=== PATIENT | male | born 1960 | race Caucasian/White ===

== ENCOUNTER 2017-03-25 21:39 | Emergency (ER) | payer MEDICAID ==
[2017-03-25 21:49] VITALS: BP 120/83; BMI 20.9
--- NOTE | 2017-03-25 21:57 | DR.GENAD ---
HPI - PCP Primary Care Physician: tomeka - Complaint/Symptoms Chief Complaint Doctors Comments: Patient states that he did not take his morning insulin but took two doses this PM. He felt weak. He denies fever, vomiting or diarrhea. Patient with history of DM. Chief Complaint:: weak dizzy Self Treatment fo Chief Complaint: took lantus - Source History Provided: Patient - Mode of Arrival Mode of Arrival: Ambulatory - Timing Onset of Chief Complaint: 03/25/17 PMH - PMH Past Medical History: Yes Past Medical History: Angina, Arthritis, CHF, COPD, Coronary Artery Disease, Depression, Diabetes, Dyslipidemia, Headaches, Hypertension Past Surgical History: Yes Surgical History: Other - Family History History of Family Medical Conditions: Yes Family Medical History: Diabetes Mellitus, Coronary Artery Disease, Hypertension - Social History Does patient currently use any type of tobacco product: Yes Have you used tobacco products in the last 12 months: Yes Type of Tobacco Use: Cigarettes How many years tobacco product used: 42 Does any household member use tobacco: Yes Alcohol Use: None Do you use any recreational Drugs:: No Lives With: Alone Lives Where: Home - infectious screening In the last 2 months have you had wt loss of >10#?: NO Have you had fever, night sweats or hemotysis?: No Have you traveled outside the country in the last 6 months?: No Isolation: Standard ROS - Review of Systems Eyes: No Symptoms Reported ENTM: No Symptoms Reported Respiratoy: No Symptoms Reported Cardiovascular: No Symptoms Reported Gastrointestinal/Abdominal: No Symptoms Reported Genitourinary: No Symptoms Reported Neurological: No Symptoms Reported Musculoskeletal: No Symptoms Reported Integumentary: No Symptoms Reported Hematologic/Lymphatic: No Symptoms Reported Endocrine: No Symptoms Reported Psychiatric: No Symptoms Reported All Other Systems: Reviewed and Negative PE - Vital Signs Vitals: Temperature 98.7 F Pulse Rate 96 Respiratory Rate 16 Blood Pressure [Right Arm] 89/60 Blood Pressure 120/83 O2 Sat by Pulse Oximetry 100 - General Limitations: No Limitations General Appearance: Alert, In No Apparent Distress - Head Head Exam: Normal Inspection, Atraumatic - Eyes Eye exam: Normal Appearance, PERRL, EOMI - ENT ENT Exam: Normal Exam External Ear Exam: Normal External Inspection TM/Canal Exam: Bilateral Normal Nose Exam: Normal Nose Exam Mouth Exam: Normal Inspection Throat Exam: Normal Inspection - Neck Neck Exam: Normal Inspection, Full ROM - Chest Chest Inspection: Normal Inspection - Respiratory Respiratory Exam: Normal Lung Sounds Bilat Respiratory Exam: Bilateral Clear to Auscultation - Cardiovascular Cardiovascular Exam: Regular Rate, Normal Rhythm - Abdominal Exam Abdominal Exam: Normal Inspection Abdominal Tenderness: negative: RUQ, RLQ, LUQ, LLQ, Epigastrium, Suprapubic, Diffuse, Mild, Moderate, Severe, Other - Extremities Extremities Exam: Normal Inspection, Full ROM - Back Back Exam: Normal Inspection, Full ROM - Neurologic Neurological Exam: Alert, Oriented X3, CN II-XII Intact - Psychiatric Psychiatric Exam: Normal Affect, Normal Mood - Skin Skin Exam: Warm, Dry, Intact Course - Treatment Treatment: NS Bolus; serum glucose 281mg/dl ROR - Labs Reviewed Result Diagrams: 03/25/17 22:05 03/25/17 22:05 Laboratory: WBC 9.4 X10^3/uL (3.6-10.0) 03/25/17 22:05 RBC 4.21 X10^6/uL (4.7-6.0) L 03/25/17 22:05 Hgb 13.1 g/dL (13.5-18.0) L 03/25/17 22:05 Hct 37.4 % (42.0-54.0) L 03/25/17 22:05 MCV 88.9 fL (80.0-100.0) 03/25/17 22:05 MCH 31.2 pg (27.0-34.0) 03/25/17 22:05 MCHC 35.1 g/dL (33.0-35.0) H 03/25/17 22:05 RDW 12.9 % (11.6-16.5) 03/25/17 22:05 Plt Count 395 X10^3/uL (150.0-450.0) 03/25/17 22:05 MPV 7.7 fL (7.4-11.0) 03/25/17 22:05 Neut % 72.8 % (42.0-75.0) 03/25/17 22:05 Lymph % 18.3 % (21.0-51.0) L 03/25/17 22:05 [place] % 6.4 % (0.0-13.0) 03/25/17 22:05 Eos % 1.9 % (0.9-2.9) 03/25/17 22:05 Baso % 0.6 % (0.2-1.0) 03/25/17 22:05 Neut # 6.8 x10^3/uL (2.2-4.8) H 03/25/17 22:05 Lymph # 1.7 X10^3/uL (1.3-2.9) 03/25/17 22:05 [place] # 0.6 x10^3/uL (0.3-0.8) 03/25/17 22:05 Eos # 0.2 x10^3/uL (0.0-0.2) 03/25/17 22:05 Baso # 0.1 X10^3/uL (0.0-0.1) 03/25/17 22:05 Absolute Nucleated RBC 0.0 /100WBC 03/25/17 22:05 Sodium 137 mmol/L (136-145) 03/25/17 22:05 Corrected Sodium 141 mmol/L (136-145) 03/25/17 22:05 Potassium 4.7 mmol/L (3.5-5.1) 03/25/17 22:05 Chloride 106 mmol/L (98-107) 03/25/17 22:05 Carbon Dioxide 23.6 mmol/L (21-32) 03/25/17 22:05 BUN 22 mg/dL (7-18) H 03/25/17 22:05 Creatinine 1.45 mg/dL (0.70-1.30) H 03/25/17 22:05 Est GFR (MDRD) Af Amer > 60 (>60) 03/25/17 22:05 Est GFR (MDRD) Non-Af 53 (>60) L 03/25/17 22:05 Glucose 281 mg/dL (65-99) H 03/25/17 22:05 POC Glucose (mg/dL) 312 mg/dL (65-99) H 03/25/17 21:51 Calcium 9.9 mg/dL (8.5-10.1) 03/25/17 22:05 Corrected Calcium TNP 03/25/17 22:05 Total Bilirubin 0.30 mg/dL (0.2-1.0) 03/25/17 22:05 AST 13 Units/L (15-37) L 03/25/17 22:05 ALT 29 Units/L (12-78) 03/25/17 22:05 Alkaline Phosphatase 126 Units/L (46-116) H 03/25/17 22:05 Total Protein 7.4 g/dL (6.4-8.2) 03/25/17 22:05 Albumin 3.9 g/dL (3.4-5.0) 03/25/17 22:05 Globulin 3.5 g/dL (2.5-4.5) 03/25/17 22:05 Albumin/Globulin Ratio 1.1 Ratio (1.1-2.1) 03/25/17 22:05 - Diagnosis Discharge Problem: Blood glucose elevated - Discharge Plan Condition: Stable - Follow ups/Referrals Follow ups/Referrals: JOSIE MALAGON [Primary Care Provider] - 3 days - Instructions
[2017-03-25] MEDS ORDERED: NS 1000 ML 1,000 ML ONE (21:59)
[2017-03-25] MEDS ORDERED: NS 1000 ML 1,000 ML IV ONE (21:59)
[2017-03-25 22:17] LABS: BASOPHILS # (AUTO) 0.1 X10^3/uL (0.0-0.1); BASOPHILS % (AUTO) 0.6 % (0.2-1.0); EOSINOPHILS # (AUTO) 0.2 x10^3/uL (0.0-0.2); EOSINOPHILS % (AUTO) 1.9 % (0.9-2.9); HEMATOCRIT 37.4 % (42.0-54.0); HEMOGLOBIN 13.1 g/dL (13.5-18.0); LYMPHOCYTES # (AUTO) 1.7 X10^3/uL (1.3-2.9); LYMPHOCYTES % (AUTO) 18.3 % (21.0-51.0); MEAN CORPUSCULAR HEMOGLOBIN 31.2 pg (27.0-34.0); MEAN CORPUSCULAR HGB CONC 35.1 g/dL (33.0-35.0); MEAN CORPUSCULAR VOLUME 88.9 fL (80.0-100.0); MEAN PLATELET VOLUME 7.7 fL (7.4-11.0); MONOCYTES # (AUTO) 0.6 x10^3/uL (0.3-0.8); MONOCYTES % (AUTO) 6.4 % (0.0-13.0); NEUTROPHILS # (AUTO) 6.8 x10^3/uL (2.2-4.8); NEUTROPHILS % (AUTO) 72.8 % (42.0-75.0); PLATELET COUNT 395 X10^3/uL (150.0-450.0); RED BLOOD COUNT 4.21 X10^6/uL (4.7-6.0); RED CELL DISTRIBUTION WIDTH 12.9 % (11.6-16.5); WHITE BLOOD COUNT 9.4 X10^3/uL (3.6-10.0)
[2017-03-25 22:32] LABS: ALANINE AMINOTRANSFERASE 29 Units/L (12-78); ALBUMIN 3.9 g/dL (3.4-5.0); ALKALINE PHOSPHATASE 126 Units/L (46-116); ASPARTATE AMINO TRANSFERASE 13 Units/L (15-37); BLOOD UREA NITROGEN 22 mg/dL (7-18); CALCIUM 9.9 mg/dL (8.5-10.1); CARBON DIOXIDE 23.6 mmol/L (21-32); CHLORIDE 106 mmol/L (98-107); COR NA(FOR HYPERGLY) 141 mmol/L (136-145); CREATININE 1.45 mg/dL (0.70-1.30); SODIUM 137 mmol/L (136-145); TOTAL PROTEIN 7.4 g/dL (6.4-8.2); eGFR BLACK RACES > 60 (>60); eGFR NON BLACK RACES 53 (>60)
== END 2017-03-25 23:38 | disposition home or self-care (01) ==
LOC: ER 21:42
DX: R73.9 Hyperglycemia, unspecified (principal)
CPT/HCPCS: 36415; 80053; 85025; 96365; 99283

== ENCOUNTER 2017-06-06 22:41 | Emergency (ER) | payer MEDICAID ==
--- NOTE | 2017-06-07 | DR.GENAD ---
HPI - HPI Comment HPI Comment: HISTORY BELOW. - Complaint/Symptoms Chief Complaint Doctors Comments: 911 RESPOND TO CALL WITH DIABETIC PROBLEM. PATIENT FOUND AT HOME HYPOGLYCEMIC. HAVE ORAL INTAKE AND GLUCOSE WAS IMPROVING. PATIENT WANTED TO COME TO ED. HE DENIES CHEST OR ABDOMINAL PAIN. NO FEVER. - Nurses notes reviewed Nurses Notes Review: Yes - Source History Provided: Patient - Mode of Arrival Mode of Arrival: Stretcher - Timing Came on: Suddenly - Duration Duration: Since Onset Duration: Minutes - Severity Severity: Moderate PMH - PMH Past Medical History: Angina, Arthritis, CHF, COPD, Coronary Artery Disease, Depression, Diabetes, Dyslipidemia, Headaches, Hypertension Past Surgical History: Yes Surgical History: Other - Family History Family Medical History: Diabetes Mellitus, Coronary Artery Disease, Hypertension - Social History Do you use any recreational Drugs:: No ROS - Review of Systems Constitutional: Weakness, Fatigue Eyes: No Symptoms Reported ENTM: No Symptoms Reported Respiratoy: No Symptoms Reported Cardiovascular: No Symptoms Reported Gastrointestinal/Abdominal: No Symptoms Reported Genitourinary: No Symptoms Reported Neurological: No Symptoms Reported, Problems Walking (WALK WITH CANE.) Musculoskeletal: No Symptoms Reported Integumentary: No Symptoms Reported Hematologic/Lymphatic: No Symptoms Reported Endocrine: No Symptoms Reported All Other Systems: Reviewed and Negative PE - Vital Signs Vitals: Blood Pressure [Right Arm] 89/60 Blood Pressure 120/83 - General Limitations: No Limitations General Appearance: Alert - Head Head Exam: Normal Inspection - Eyes Eye exam: Normal Appearance - ENT ENT Exam: Normal External Ear Exam External Ear Exam: Normal External Inspection TM/Canal Exam: Bilateral Normal Nose Exam: Normal Nose Exam Mouth Exam: Normal Inspection Throat Exam: Normal Inspection - Neck Neck Exam: Trachea Midline - Chest Chest Inspection: Symmetric Chest Wall Rise - Respiratory Respiratory Exam: Normal Lung Sounds Bilat Respiratory Exam: Bilateral Clear to Auscultation - Cardiovascular Cardiovascular Exam: Regular Rate, Normal Rhythm, Normal Heart Sounds - Abdominal Exam Abdominal Exam: Normal Bowel Sounds, Soft. negative: Tenderness - Extremities Extremities Exam: Normal Inspection - Back Back Exam: Normal Inspection - Neurologic Neurological Exam: Alert, Oriented X3 - Psychiatric Psychiatric Exam: Normal Affect, Normal Mood - Skin Skin Exam: Normal Color MDM - Differential Diagnosis Differential Diagnosis: HYPOGLYCEMIA. Course - Treatment Treatment: SEE ORDERS. PATIENT GIVEN FOOD IN ED. - Education/Counseling Education/Counseling: Patient, Education Educated On: Treatment, Diagnosis, Needs for Follow Up ROR - Labs Reviewed Laboratory Results Reviewed?: Yes Result Diagrams: 06/06/17 23:20 06/06/17 23:20 Laboratory: WBC 13.2 X10^3/uL (3.6-10.0) H 06/06/17 23:20 RBC 3.92 X10^6/uL (4.7-6.0) L 06/06/17 23:20 Hgb 12.2 g/dL (13.5-18.0) L 06/06/17 23:20 Hct 35.4 % (42.0-54.0) L 06/06/17 23:20 MCV 90.3 fL (80.0-100.0) 06/06/17 23:20 MCH 31.0 pg (27.0-34.0) 06/06/17 23:20 MCHC 34.4 g/dL (33.0-35.0) 06/06/17 23:20 RDW 13.7 % (11.6-16.5) 06/06/17 23:20 Plt Count 461 X10^3/uL (150.0-450.0) H 06/06/17 23:20 MPV 6.1 fL (7.4-11.0) L 06/06/17 23:20 Neut % 72.5 % (42.0-75.0) 06/06/17 23:20 Lymph % 18.4 % (21.0-51.0) L 06/06/17 23:20 [place] % 7.4 % (0.0-13.0) 06/06/17 23:20 Eos % 1.4 % (0.9-2.9) 06/06/17 23:20 Baso % 0.3 % (0.2-1.0) 06/06/17 23:20 Neut # 9.5 x10^3/uL (2.2-4.8) H 06/06/17 23:20 Lymph # 2.4 X10^3/uL (1.3-2.9) 06/06/17 23:20 [place] # 1.0 x10^3/uL (0.3-0.8) H 06/06/17 23:20 Eos # 0.2 x10^3/uL (0.0-0.2) 06/06/17 23:20 Baso # 0.0 X10^3/uL (0.0-0.1) 06/06/17 23:20 Absolute Nucleated RBC 0.0 /100WBC 06/06/17 23:20 INR Target Range - 06/06/17 23:20 INR 0.90 (0.8-1.3) 06/06/17 23:20 PTT 27.2 SECONDS (22.9-36.5) 06/06/17 23:20 PTT Comment - 06/06/17 23:20 Sodium 141 mmol/L (136-145) 06/06/17 23:20 Corrected Sodium TNP 06/06/17 23:20 Potassium 5.0 mmol/L (3.5-5.1) 06/06/17 23:20 Chloride 106 mmol/L (98-107) 06/06/17 23:20 Carbon Dioxide 26.2 mmol/L (21-32) 06/06/17 23:20 BUN 21 mg/dL (7-18) H 06/06/17 23:20 Creatinine 1.17 mg/dL (0.70-1.30) 06/06/17 23:20 Est GFR (MDRD) Af Amer > 60 (>60) 06/06/17 23:20 Est GFR (MDRD) Non-Af > 60 (>60) 06/06/17 23:20 Glucose 67 mg/dL (65-99) 06/06/17 23:20 POC Glucose (mg/dL) 77 mg/dL (65-99) 06/07/17 00:55 Calcium 9.1 mg/dL (8.5-10.1) 06/06/17 23:20 Corrected Calcium TNP 06/06/17 23:20 Magnesium 1.5 mg/dL (1.7-2.9) L 06/06/17 23:20 Total Bilirubin 0.10 mg/dL (0.2-1.0) L 06/06/17 23:20 AST 14 Units/L (15-37) L 06/06/17 23:20 ALT 25 Units/L (12-78) 06/06/17 23:20 Alkaline Phosphatase 92 Units/L (46-116) 06/06/17 23:20 Creatine Kinase 88 Units/L (39-308) 06/06/17 23:20 CK-MB (CK-2) 1.7 ng/mL (0-4.0) 06/06/17 23:20 CK/CKMB % Calc 1.9 % (<4) 06/06/17 23:20 Troponin I 0.02 ng/mL (0-1.5) 06/06/17 23:20 Total Protein 7.0 g/dL (6.4-8.2) 06/06/17 23:20 Albumin 3.8 g/dL (3.4-5.0) 06/06/17 23:20 Globulin 3.2 g/dL (2.5-4.5) 06/06/17 23:20 Albumin/Globulin Ratio 1.2 Ratio (1.1-2.1) 06/06/17 23:20 - XRAY XRAY Interpreted by: Self XRAY Findings: XRAY DISCUSS WITH PATIENT. - EKG Rhythm: NSR - Diagnosis Discharge Problem: Hypoglycemia - Discharge Plan Disposition: 01 HOME, SELF-CARE Condition: Stable - Follow ups/Referrals Follow ups/Referrals: JOSIE MALAGON [Primary Care Provider] - 3 days - Instructions Instructions: Hypoglycemia, [id number] Additional Instructions: RETURN TO ED IF WORSE.
[2017-06-07 00:17] LABS: ALANINE AMINOTRANSFERASE 25 Units/L (12-78); ALBUMIN 3.8 g/dL (3.4-5.0); ALKALINE PHOSPHATASE 92 Units/L (46-116); ASPARTATE AMINO TRANSFERASE 14 Units/L (15-37); BLOOD UREA NITROGEN 21 mg/dL (7-18); CALCIUM 9.1 mg/dL (8.5-10.1); CARBON DIOXIDE 26.2 mmol/L (21-32); CHLORIDE 106 mmol/L (98-107); CKMB % 1.9 % (<4); CREATINE KINASE 88 Units/L (39-308); CREATINE KINASE MB 1.7 ng/mL (0-4.0); CREATININE 1.17 mg/dL (0.70-1.30); SODIUM 141 mmol/L (136-145); TROPONIN I 0.02 ng/mL (0-1.5); eGFR BLACK RACES > 60 (>60); eGFR NON BLACK RACES > 60 (>60)
[2017-06-07 00:25] LABS: BASOPHILS % (AUTO) 0.3 % (0.2-1.0); EOSINOPHILS # (AUTO) 0.2 x10^3/uL (0.0-0.2); EOSINOPHILS % (AUTO) 1.4 % (0.9-2.9); HEMATOCRIT 35.4 % (42.0-54.0); HEMOGLOBIN 12.2 g/dL (13.5-18.0); LYMPHOCYTES # (AUTO) 2.4 X10^3/uL (1.3-2.9); LYMPHOCYTES % (AUTO) 18.4 % (21.0-51.0); MEAN CORPUSCULAR HGB CONC 34.4 g/dL (33.0-35.0); MEAN CORPUSCULAR VOLUME 90.3 fL (80.0-100.0); MEAN PLATELET VOLUME 6.1 fL (7.4-11.0); MONOCYTES % (AUTO) 7.4 % (0.0-13.0); NEUTROPHILS # (AUTO) 9.5 x10^3/uL (2.2-4.8); NEUTROPHILS % (AUTO) 72.5 % (42.0-75.0); PLATELET COUNT 461 X10^3/uL (150.0-450.0); RED BLOOD COUNT 3.92 X10^6/uL (4.7-6.0); RED CELL DISTRIBUTION WIDTH 13.7 % (11.6-16.5); WHITE BLOOD COUNT 13.2 X10^3/uL (3.6-10.0)
--- NOTE | 2017-06-07 05:59 | RAD ---
Examination: Portable AP chest History: Hypertension Comparison reference 09/06/2013 Findings: Continued normal heart size. The lungs are clear except for slight subsegmental atelectasis in the left lower lung. There is no evidence for pulmonary edema or pleural effusion. Impression: Minimal left basal atelectasis. No change otherwise. Reported By:
== END 2017-06-07 01:51 | disposition home or self-care (01) ==
LOC: ER 22:41
DX: E16.2 Hypoglycemia, unspecified (principal); J98.11 Atelectasis
CPT/HCPCS: 36415; 71010; 80053; 82550; 82553; 83735; 84484; 85025; 85610; 85730; 93005; 93010; 99282; 99283

== ENCOUNTER 2021-10-28 15:36 | Observation (INO) ==
--- NOTE | 2021-10-28 16:12 | DR.WEAKNES ---
HPI Time Seen Time Seen by Provider: 10/28/21 15:49 Complaints Chief Complaint Doctors Comments: 61 y/o male presents for evaluation. Sudden onset of right hand weakness. Occurred around 1300 (3 hours ago). Went to another facility. Reportedly had a CT there, was told he probably had a CVA, but couldn't give tPA due to recent blood transfusion 2 weeks ago (thinking GI bleed ?). No pain or numbness of the R arm, just weakness of the R hand. Had a slight headache, improving. Having some blurred vision. 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 Is on ASA/Plavix. Denies any recent trauma or pressure to the R arm. Chief Complaint:: Pt states he thinks he had a stroke because he cannot use his right hand. He states this started at approx 1300 today. Pt denies weakness in right arm or leg. No facial droop or slurred speech noted. Pt states his gait is normal. He c/o headache above left eye brow. He denies dizziness. Self Treatment fo Chief Complaint: Pt was seen in [place] and had an EKG and CT. He states he was told he possibly had a stroke. He was told he was not a candidate for TPA due to blood transfusion 2 weeks ago. Reviewed Nurses Notes Reviewed: Yes Source History Provided: Patient Mode of Arrival Mode of Arrival: Ambulatory Timing Onset of Chief Complaint: 10/28/21 Since onset, symptoms are:: Unchanged Symptom Onset: Known Onset of Symptoms Start Date: 10/28/21 Onset of Symptoms Start Time: 13:00 Duration Duration: Since Onset Context Onset: Spontaneous Stroke Symptoms: Weakness of limb PMH PMH Past Medical History: Yes Past Medical History: Angina, Arthritis, CHF, COPD, Coronary Artery Disease, CVA, Depression, Diabetes, Dyslipidemia, Headaches and Hypertension Past Surgical History: Yes Surgical History: Angioplasty/Stents, CABG/Valve Surgery and Other Family History History of Family Medical Conditions: Yes Family Medical History: Diabetes Mellitus, Coronary Artery Disease and Hypertension Social History Does patient currently use any type of tobacco product: Yes Have you used tobacco products in the last 12 months: Yes Type of Tobacco Use: Cigarettes Does any household member use tobacco: No Alcohol Use: None Do you use any recreational Drugs:: No Travel Risk Coronavirus risk:travel/contact w/high risk person: No Has patient experienced Coronavirus symptoms: No Infectious screening In the last 2 months have you had wt loss of >10#?: NO Have you had fever, night sweats or hemotysis?: No Have you traveled outside the country in the last 6 months?: No Isolation: Standard ROS Review of Systems Constitutional: No Symptoms Reported Eyes: Blurred Vision ENTM: No Symptoms Reported Respiratoy: No Symptoms Reported Cardiovascular: No Symptoms Reported Gastrointestinal/Abdominal: No Symptoms Reported Genitourinary: No Symptoms Reported Neurological: Headache and Weakness (R hand) Musculoskeletal: See HPI Integumentary: No Symptoms Reported Hematologic/Lymphatic: No Symptoms Reported Psychiatric: No Symptoms Reported All Other Systems: Reviewed and Negative PE Vital Signs Vitals: Temperature 97.0 F Pulse Rate 77 Respiratory Rate 34 Blood Pressure [Right Arm] 160/71 Blood Pressure 179/124 O2 Sat by Pulse Oximetry 99 General Limitations: No Limitations General Appearance: Alert and In No Apparent Distress Head Head Exam: Normal Inspection, Atraumatic and Normocephalic Eyes Eye exam: PERRL and EOMI ENT ENT Exam: Normal Exam and Mucous Membranes Moist Neck Neck Exam: Normal Inspection and Full ROM Chest Chest Inspection: Normal Inspection Respiratory Respiratory Exam: Normal Lung Sounds Bilat; negative Accessory Muscle Use and Respiratory Distress Cardiovascular Cardiovascular Exam: Regular Rate, Normal Rhythm and Normal Heart Sounds Abdominal Exam Abdominal Exam: Normal Bowel Sounds and Soft; negative Tenderness Extremities Extremities Exam: Full ROM and Edema (1-2+ of bilateral feet) Back Back Exam: Normal Inspection; negative Tenderness Neurologic Neurological Exam: Alert, Oriented X3, CN II-XII Intact and Other (+ profound weakness of the R hand - cannot extend/flex the fingers, decreased ROM of the wrist. Hand warm, no numbness.) MDM Differential Diagnosis Differential Diagnosis Comment: Nerve palsy, CVA, TIA COURSE Treatment Treatment: 61 y/o male presents with sudden onset of R hand weakness, no other RUE weakness. Hand is warm, no numbness. Unlikely to have a CVA with isolated , total hand weakness, though possible. He states had a previous CVA involving just his other hand. Neuro consulted via telemed. Neurologist agrees, unlikely CVA, but possible. Baseline CT of head without hemorrhagic CVA. Baseline labs acceptable, has degree of renal insufficiency. Will admit for observation, obtain MRI of the brain in the am, without contrast. Discussed with Dr Givens, accepts the admission. ROR Labs Reviewed Laboratory Results Reviewed?: Yes Result Diagrams: 10/28/21 16:37 10/28/21 16:37 Laboratory: WBC 8.5 X10^3/uL (3.6-10.0) 10/28/21 16:37 RBC 3.16 X10^6/uL (4.7-6.0) L 10/28/21 16:37 Hgb 8.8 g/dL (13.5-18.0) L 10/28/21 16:37 Hct 26.5 % (42.0-54.0) L 10/28/21 16:37 MCV 84.0 fL (80.0-100.0) 10/28/21 16:37 MCH 27.8 pg (27.0-34.0) 10/28/21 16:37 MCHC 33.1 g/dL (33.0-35.0) 10/28/21 16:37 RDW 16.4 % (11.6-16.5) 10/28/21 16:37 Plt Count 389 X10^3/uL (150.0-450.0) 10/28/21 16:37 MPV 6.7 fL (7.4-11.0) L 10/28/21 16:37 Neut % (Auto) 67.0 % (42.0-75.0) 10/28/21 16:37 Lymph % (Auto) 17.2 % (21.0-51.0) L 10/28/21 16:37 [place] % (Auto) 9.2 % (0.0-13.0) 10/28/21 16:37 Eos % (Auto) 6.1 % (0.9-2.9) H 10/28/21 16:37 Baso % (Auto) 0.5 % (0.2-1.0) 10/28/21 16:37 Neut # (Auto) 5.7 x10^3/uL (2.2-4.8) H 10/28/21 16:37 Lymph # (Auto) 1.5 X10^3/uL (1.3-2.9) 10/28/21 16:37 [place] # (Auto) 0.8 x10^3/uL (0.3-0.8) 10/28/21 16:37 Eos # (Auto) 0.5 x10^3/uL (0.0-0.2) H 10/28/21 16:37 Baso # (Auto) 0.0 X10^3/uL (0.0-0.1) 10/28/21 16:37 Absolute Nucleated RBC 0.0 /100WBC 10/28/21 16:37 PT 12.9 SECONDS (11.8-14.3) 10/28/21 16:37 INR Target Range - 10/28/21 16:37 INR 1.00 (0.8-1.3) 10/28/21 16:37 APTT 27.3 SECONDS (22.9-36.5) 10/28/21 16:37 PTT Comment - 10/28/21 16:37 Fibrinogen 401 mg/dL (239-489) 10/28/21 16:37 Sodium 139 mmol/L (136-145) 10/28/21 16:37 Corrected Sodium 143 mmol/L (136-145) 10/28/21 16:37 Potassium 4.4 mmol/L (3.5-5.1) 10/28/21 16:37 Chloride 104 mmol/L (98-107) 10/28/21 16:37 Carbon Dioxide 24.2 mmol/L (21-32) 10/28/21 16:37 BUN 44 mg/dL (7-18) H 10/28/21 16:37 Creatinine 2.04 mg/dL (0.70-1.30) H 10/28/21 16:37 Est GFR (MDRD) Af Amer 43 (>60) L 10/28/21 16:37 Est GFR (MDRD) Non-Af 35 (>60) L 10/28/21 16:37 Glucose 273 mg/dL (65-99) H 10/28/21 16:37 Calcium 8.3 mg/dL (8.5-10.1) L 10/28/21 16:37 Other Results Comments: + degree of anemia, Hgb 8.8. Glucose elevated 273. XRAY XRAY Interpreted by: Both X-ray Results: CT head without acute abnormalities EKG Rate: 72 [place]: LAD Rhythm: NSR Block: LBBB ST: Nonsp Opioid Opioid Risk Tool Age (Porfirio box if 16-45): No History of Preadolescent Sexual Abuse: No Total: 0 Total Score Risk Category: Low Risk Copyright: Oscar SMITH predicting aberrant behaviors Diagnosis Discharge Problem: Weakness of right hand
[2021-10-28 16:48] LABS: BASOPHILS % (AUTO) 0.5 % (0.2-1.0); EOSINOPHILS # (AUTO) 0.5 x10^3/uL (0.0-0.2); EOSINOPHILS % (AUTO) 6.1 % (0.9-2.9); HEMATOCRIT 26.5 % (42.0-54.0); HEMOGLOBIN 8.8 g/dL (13.5-18.0); LYMPHOCYTES # (AUTO) 1.5 X10^3/uL (1.3-2.9); LYMPHOCYTES % (AUTO) 17.2 % (21.0-51.0); MEAN CORPUSCULAR HEMOGLOBIN 27.8 pg (27.0-34.0); MEAN CORPUSCULAR HGB CONC 33.1 g/dL (33.0-35.0); MEAN PLATELET VOLUME 6.7 fL (7.4-11.0); MONOCYTES # (AUTO) 0.8 x10^3/uL (0.3-0.8); MONOCYTES % (AUTO) 9.2 % (0.0-13.0); NEUTROPHILS # (AUTO) 5.7 x10^3/uL (2.2-4.8); RED BLOOD COUNT 3.16 X10^6/uL (4.7-6.0); RED CELL DISTRIBUTION WIDTH 16.4 % (11.6-16.5); WHITE BLOOD COUNT 8.5 X10^3/uL (3.6-10.0)
[2021-10-28 16:55] LABS: CALCIUM 8.3 mg/dL (8.5-10.1); CARBON DIOXIDE 24.2 mmol/L (21-32); CREATININE 2.04 mg/dL (0.70-1.30)
--- NOTE | 2021-10-28 18:24 | CT ---
BRAIN W/O CONHistory: ISOLATED RIGHT HAND WEAKNESS, POSS STROKETechnique: CT images of the brain were obtained without contrast. Reformatted images in the coronal and sagittal planes also generated for review. Automatic exposure was utilized.Comparison: None availableFindings: There is age-appropriate generalized cerebral atrophy with commensurate ventricular and sulcal enlargement. There are patchy areas of periventricular and subcortical white matter hypoattenuation, which are nonspecific but are likely on the basis of chronic small vessel ischemic disease. Estrada-white differentiation is maintained. No visible acute infarction is identified. If clinical concern for acute ischemia remains high and would make a clinical difference to diagnose stroke now, consider MRI for further evaluation. There is no intracranial hemorrhage, extra-axial collection, hydrocephalus or mass. There is mild mucosal thickening and hyperostosis of the bilateral maxillary sinuses, suggestive of chronic sinusitis. Remaining paranasal sinuses and mastoid air cells are predominantly clear. Imaged extracranial structures are grossly unremarkable.Impression:No acute intracranial abnormality.Age related atrophy and chronic microangiopathic disease.Electronically signed by: JJ PEREZ (October 28, 2021 17:03:17)
[2021-10-28 21:03] LABS: COR CA(FOR HYPOALB) 9.1 mg/dL (8.5-10.1); TOTAL PROTEIN 6.2 g/dL (6.4-8.2)
[2021-10-28] MEDS ORDERED: TRAZODONE 150 MG PO SCH (21:30)
[2021-10-28] MEDS ORDERED: TYLENOL 325 MG TAB PO PRN (22:13)
[2021-10-28] MEDS ORDERED: DESYREL PO ONE (22:31)
[2021-10-28] MEDS: LOPRESSOR TAB 25 MG PO SCH (22:49)
[2021-10-28] MEDS: LANTUS SC SCH (22:50)
[2021-10-28] MEDS: SNACK - Diabetic Appropriate PO SCH (22:50)
[2021-10-28] MEDS: DESYREL PO SCH (22:51)
[2021-10-28] MEDS: NORCO 5/325 MG TAB PO PRN (23:45)
[2021-10-29 00:45] VITALS: BMI 19.5
[2021-10-29 04:55] LABS: BASOPHILS % (AUTO) 0.4 % (0.2-1.0); EOSINOPHILS # (AUTO) 0.5 x10^3/uL (0.0-0.2); EOSINOPHILS % (AUTO) 6.1 % (0.9-2.9); HEMATOCRIT 24.3 % (42.0-54.0); HEMOGLOBIN 8.2 g/dL (13.5-18.0); LYMPHOCYTES # (AUTO) 1.2 X10^3/uL (1.3-2.9); LYMPHOCYTES % (AUTO) 15.2 % (21.0-51.0); MEAN CORPUSCULAR HGB CONC 33.7 g/dL (33.0-35.0); MEAN CORPUSCULAR VOLUME 83.1 fL (80.0-100.0); MEAN PLATELET VOLUME 6.9 fL (7.4-11.0); MONOCYTES # (AUTO) 0.9 x10^3/uL (0.3-0.8); MONOCYTES % (AUTO) 11.7 % (0.0-13.0); NEUTROPHILS # (AUTO) 5.1 x10^3/uL (2.2-4.8); NEUTROPHILS % (AUTO) 66.6 % (42.0-75.0); RED BLOOD COUNT 2.92 X10^6/uL (4.7-6.0); RED CELL DISTRIBUTION WIDTH 16.8 % (11.6-16.5); WHITE BLOOD COUNT 7.6 X10^3/uL (3.6-10.0)
[2021-10-29 05:08] LABS: ALBUMIN 2.6 g/dL (3.4-5.0); CALCIUM 8.1 mg/dL (8.5-10.1); CARBON DIOXIDE 24.1 mmol/L (21-32); COR CA(FOR HYPOALB) 9.2 mg/dL (8.5-10.1); CREATININE 1.79 mg/dL (0.70-1.30); TOTAL PROTEIN 5.7 g/dL (6.4-8.2)
[2021-10-29] MEDS: NovoLIN R (or HumuLIN R) SUBCUT PRN ×3 (06:16→21:33)
[2021-10-29] MEDS ORDERED: LISINOPRIL 5 MG PO SCH (09:00)
[2021-10-29] MEDS ORDERED: LANTUS SC SCH (09:00)
[2021-10-29] MEDS: PLAVIX PO SCH (09:10)
[2021-10-29] MEDS: ASPIRIN 81 MG CHEWTAB PO SCH (09:10)
[2021-10-29] MEDS: LOPRESSOR TAB 25 MG PO SCH ×2 (09:11→20:43)
[2021-10-29] MEDS: ZESTRIL TAB 5 MG PO SCH (09:11)
--- NOTE | 2021-10-29 09:44 | TELESTROKE ---
Tele[facility]Specialist Consult Date of Consult Date of Exam: 10/28/21 Time of Arrival to the ED: 15:36 Allergies Allergies Allergy/AdvReac Type Severity Reaction Status Date / Time No Known Drug Allergies Allergy Verified 03/25/17 21:56 Vital Signs Vital Signs: Temp Pulse Pulse Resp BP BP Pulse Ox 10/29/21 08:00 98.7 F 66 18 135/62 95 10/29/21 04:00 98.8 F 72 20 167/79 98 10/29/21 00:45 20 10/29/21 00:00 99.0 F 69 20 174/74 96 10/28/21 23:45 20 10/28/21 21:00 72 18 144/62 100 10/28/21 20:45 72 25 H 99 10/28/21 20:30 71 25 H 157/67 100 10/28/21 20:15 72 21 100 10/28/21 20:00 76 20 145/67 10/28/21 19:45 79 27 H 10/28/21 19:30 77 34 H 10/28/21 19:15 74 25 H 99 10/28/21 19:02 71 33 H 179/124 93 L 10/28/21 19:00 73 27 H 90 L 10/28/21 18:45 73 24 100 10/28/21 18:30 71 17 178/73 100 10/28/21 18:15 77 96 10/28/21 18:00 71 16 165/74 97 10/28/21 17:45 71 23 97 10/28/21 17:30 72 21 166/77 97 10/28/21 17:15 71 15 100 10/28/21 17:00 71 21 173/76 100 10/28/21 16:45 71 21 99 10/28/21 16:41 72 21 100 10/28/21 16:30 71 18 155/65 100 10/28/21 15:37 97.0 F L 66 20 124/58 100 12/28/18 05:00 160/71 Medical Decision Making Result Diagrams: 10/29/21 04:40 10/29/21 04:40 Labs: Laboratory Results - last 24 hr 10/28/21 10/28/21 10/28/21 16:37 16:37 16:37 WBC 8.5 RBC 3.16 L Hgb 8.8 L Hct 26.5 L MCV 84.0 MCH 27.8 MCHC 33.1 RDW 16.4 Plt Count 389 MPV 6.7 L Neut % (Auto) 67.0 Lymph % (Auto) 17.2 L [place] % (Auto) 9.2 Eos % (Auto) 6.1 H Baso % (Auto) 0.5 Neut # (Auto) 5.7 H Lymph # (Auto) 1.5 [place] # (Auto) 0.8 Eos # (Auto) 0.5 H Baso # (Auto) 0.0 Absolute Nucleated RBC 0.0 PT 12.9 INR Target Range - INR 1.00 APTT 27.3 PTT Comment - Fibrinogen 401 Sodium 139 Corrected Sodium 143 Potassium 4.4 Chloride 104 Carbon Dioxide 24.2 BUN 44 H Creatinine 2.04 H Est GFR (MDRD) Af Amer 43 L Est GFR (MDRD) Non-Af 35 L Glucose 273 H POC Glucose (mg/dL) Calcium 8.3 L Corrected Calcium 9.1 Total Bilirubin 0.30 AST 17 ALT 24 Alkaline Phosphatase 96 Total Protein 6.2 L Albumin 3.0 L Globulin 3.2 Albumin/Globulin Ratio 0.9 L Triglycerides 113 Cholesterol 127 LDL Cholesterol, Calc 39 HDL Cholesterol 65 H Cholesterol/HDL Ratio 2.0 SARS-CoV-2 (PCR) 10/28/21 10/28/21 10/29/21 20:01 22:22 04:40 WBC 7.6 RBC 2.92 L Hgb 8.2 L Hct 24.3 L MCV 83.1 MCH 28.0 MCHC 33.7 RDW 16.8 H Plt Count 401 MPV 6.9 L Neut % (Auto) 66.6 Lymph % (Auto) 15.2 L [place] % (Auto) 11.7 Eos % (Auto) 6.1 H Baso % (Auto) 0.4 Neut # (Auto) 5.1 H Lymph # (Auto) 1.2 L [place] # (Auto) 0.9 H Eos # (Auto) 0.5 H Baso # (Auto) 0.0 Absolute Nucleated RBC 0.0 PT INR Target Range INR APTT PTT Comment Fibrinogen Sodium Corrected Sodium Potassium Chloride Carbon Dioxide BUN Creatinine Est GFR (MDRD) Af Amer Est GFR (MDRD) Non-Af Glucose POC Glucose (mg/dL) 262 H Calcium Corrected Calcium Total Bilirubin AST ALT Alkaline Phosphatase Total Protein Albumin Globulin Albumin/Globulin Ratio Triglycerides Cholesterol LDL Cholesterol, Calc HDL Cholesterol Cholesterol/HDL Ratio SARS-CoV-2 (PCR) Negative 10/29/21 04:40 WBC RBC Hgb Hct MCV MCH MCHC RDW Plt Count MPV Neut % (Auto) Lymph % (Auto) [place] % (Auto) Eos % (Auto) Baso % (Auto) Neut # (Auto) Lymph # (Auto) [place] # (Auto) Eos # (Auto) Baso # (Auto) Absolute Nucleated RBC PT INR Target Range INR APTT PTT Comment Fibrinogen Sodium 140 Corrected Sodium 145 Potassium 4.7 Chloride 107 Carbon Dioxide 24.1 BUN 42 H Creatinine 1.79 H Est GFR (MDRD) Af Amer 50 L Est GFR (MDRD) Non-Af 41 L Glucose 320 H POC Glucose (mg/dL) Calcium 8.1 L Corrected Calcium 9.2 Total Bilirubin 0.30 AST 14 L ALT 21 Alkaline Phosphatase 96 Total Protein 5.7 L Albumin 2.6 L Globulin 3.1 Albumin/Globulin Ratio 0.8 L Triglycerides Cholesterol LDL Cholesterol, Calc HDL Cholesterol Cholesterol/HDL Ratio SARS-CoV-2 (PCR) [facility] Tele[facility]urology Consult Services Date of Service: 10/28/2021 16:29:44 Diagnosis: I63.9 - Cerebrovascular accident (CVA), unspecified mechanism (HCC) Impression: Pt with isolated right hand and wrist weakness. Out of time window for thrombolytics. No sensory changes. Recommend ASA 325 to be added to his plavix. Admit for stroke workup including MRI brain, MRA head and neck, TTE, telemetry. Metrics: Last Known Well: 10/28/2021 11:00:00 [facility] Notification Time: 10/28/2021 16:28:18 Arrival Time: 10/28/2021 15:36:00 Stamp Time: 10/28/2021 16:29:44 Initial Response Time: 10/28/2021 16:31:29 Symptoms: hand weakness. NIHSS Start Assessment Time: 10/28/2021 16:34:59 Patient is not a candidate for Thrombolytic. Thrombolytic Medical Decision: 10/28/2021 16:35:00 Patient was not deemed candidate for Thrombolytic because of following reasons: Last Well Known Above 4.[address] head showed no acute hemorrhage or acute core infarct. CT head was reviewed. ED Physician notified of diagnostic impression and management plan on 10/28/2021 16:46:31 Advanced Imaging: Advanced Imaging Not Recommended because: Clinical presentation is not suggestion of LVO or Low clinical suspicion of LVO based on presentation Our recommendations are outlined below. Recommendations: Stroke/Telemetry Floor Neuro Checks Bedside Swallow Eval DVT Prophylaxis IV Fluids, Normal Saline Head of Bed 30 Degrees Euglycemia and Avoid Hyperthermia (PRN Acetaminophen) Initiate Aspirin 325 MG Daily Antihypertensives PRN if Blood pressure is greater than 220/120 or there is a concern for End organ damage/contraindications for permissive HTN. If blood pressure is greater than 220/120 give labetalol PO or IV or Vasotec IV with a goal of 15% reduction in BP during the first 24 hours. Routine Consultation with Inhouse Neurology for Follow up Care Sign Out: Discussed with Emergency Department Provider History of Present Illness: Patient is a 61 year old Male. Patient was brought by private transportation with symptoms of hand weakness. The patient awoke from a nap with right hand weakness. He denies numbness. He laid down at 1100 for his nap. He has a h/o prior stroke 4-5 months ago, CAD s/p CABG, recent anemia requiring transfusions. He went to another hospital and apparently had CT head that was neg for acute process. He cannot move fingers of right hand at all, cannot flex or extend at wrist. No proximal weakness. Past Medical History: Hypertension Hyperlipidemia Coronary Artery Disease Stroke Social History: Smoking: Yes Alcohol Use: No Drug Use: No Anticoagulant use: No Antiplatelet use: Yes plavix Allergies: Reviewed Examination: BP(155/65), Pulse(73), Blood Glucose(273) 1A: Level of Consciousness - Alert; keenly responsive + 0 1B: Ask Month and Age - Both Questions Right + 0 1C: Blink Eyes & Squeeze Hands - Performs Both Tasks + 0 2: Test Horizontal Extraocular Movements - Normal + 0 3: Test Visual Valdovinos - No Visual Loss + 0 4: Test Facial Palsy (Use Grimace if Obtunded) - Normal symmetry + 0 5A: Test Left Arm Motor Drift - No Drift for 10 Seconds + 0 5B: Test Right Arm Motor Drift - No Drift for 10 Seconds + 0 6A: Test Left Leg Motor Drift - No Drift for 5 Seconds + 0 6B: Test Right Leg Motor Drift - No Drift for 5 Seconds + 0 7: Test Limb Ataxia (FNF/Heel-Morris) - No Ataxia + 0 8: Test Sensation - Normal; No sensory loss + 0 9: Test Language/Aphasia - Normal; No aphasia + 0 10: Test Dysarthria - Normal + 0 11: Test Extinction/Inattention - No abnormality + 0 NIHSS Score: 0 NIHSS Free Text : unable to open and close hand but no drift (right) Pre-Morbid Modified Stu Scale: 0 Points = No symptoms at all Patient/Family was informed the Neurology Consult would occur via TeleHealth consult by way of interactive audio and video telecommunications and consented to receiving care in this manner. Patient is being evaluated for possible acute neurologic impairment and high probability of imminent or life-threatening deterioration. I spent total of 36 minutes providing care to this patient, including time for face to face visit via telemedicine, review of medical records, imaging studies and discussion of findings with providers, the patient and/or family. Dr Rogelio Irby [facility] Case [id number]
--- NOTE | 2021-10-29 12:18 | MRI ---
HISTORYDYSPNEA, HX OF COVID, rt hand weaknessSTUDYBRAIN W/O CONCOMPARISONCT head dated 10/28/2021TECHNIQUEMultiplanar multi sequences images through the brain were performed without contrast.FINDINGSThere is mild central and peripheral volume loss. No evidence of an acute infarct, no focal areas of restricted diffusion. There is no abnormal intraparenchymal susceptibility artifact. There is mild central and peripheral volume loss. FLAIR images demonstrate mild periventricular and few scattered areas of high signal in the subcortical white matter.The main arterial and venous flow voids are present. No abnormal signal in the mastoid cells. The temporomandibular condyles are intact. There are small air-fluid levels in the maxillary sinuses, no orbital masses. No sellar masses. The cervicocranial junction is unremarkable, no nasopharyngeal masses. No intra or extra-axial fluid collections. Symmetry of the cavernous sinus.IMPRESSIONNo acute intracranial abnormalities. No acute infarcts.Small air-fluid levels in the maxillary sinus.Minimal periventricular and subcortical white matter changes nonspecific. Less likely demyelinization.Electronically signed by: Marlyn Dickey (October 29, 2021 12:17:08)
--- NOTE | 2021-10-29 17:45 | DR.H&P ---
H&P - History & Physical for Day of: H&P Date: 10/28/21 - Chief Complaint Chief Complaint: Right hand weakness - History of Present Illness History of Present Illness: Patient is a 61 year old white male who is being admitted due to right hand weakness. Right hand is limp. Patient unable to close fingers or rotate wrist. Patient reports sudden onset. Patient denies lower ext weakness, CP, SOB, CORONEL or any other symptoms. It was recommended patient not receive TPA due to recent GI bleed and blood transfusion. PCP in [place]. Patient reports he was recently in [facility]. Labs and imaging reviewd. - Past Medical History Past Medical History: Angina, Coronary Artery Disease, Hypertension, Dyslipidemia, Diabetes, Depression, CVA, COPD, Arthritis, Headaches, CHF - Past Surgical History Surgical History: Angioplasty/Stents, CABG/Valve Surgery, Ortho Surgery - Family History Family Medical History: Diabetes Mellitus, [place], Coronary Artery Disease, Hypertension - Social History Does patient currently use any type of tobacco product: Yes (ALSO USES VAPE) Have you used tobacco products in the last 12 months: Yes Type of Tobacco Use: Cigarettes Does any household member use tobacco: No Alcohol Use: None Drug Use: None - Medications Home Medications: No Known Drug Allergies Allergy (Verified 03/25/17 21:56) CONTINUE taking the following medications trazodone 150 mg PO HS 10/28/21 [History] - Review of Systems Constitutional: See HPI Eyes: See HPI ENT: See HPI Respiratory: See HPI Cardiovascular: See HPI Genitourinary: See HPI Musculoskeletal: See HPI Skin: See HPI Neurological: See HPI - Physical Exam Vital Signs: Temperature 98.7 F Pulse Rate [Brachial] 70 Pulse Rate 72 Respiratory Rate 18 Blood Pressure [Right Arm] 132/69 Blood Pressure 144/62 O2 Sat by Pulse Oximetry 97 Oriented: Normal Eyes: Normal Ear: Normal Nose: Normal Throat: Normal Respiratory: Clear Throughout Cardiovascular: Normal : Normal Auscultation: Bowel Sounds: Normal Palpation: Normal Tenderness: Normal Skin: Decreased Turgur Musculoskeletal: Right, Wrist, Hand (Right hand limp, unable to rotate wrist due to weakness) Psychiatric: Normal Mood Description: Calm Affect: Normal Speech Pattern: Clear, Appropriate - Assessment/Plan (1) Weakness of right hand Status: Acute Plan: Admit. MRI brain pending. See EMR for further orders (2) Hypertension Status: Chronic (3) History of CVA (cerebrovascular accident) Status: Chronic - Allergies Allergies/Adverse Reactions: Allergies Allergy/AdvReac Type Severity Reaction Status Date / Time No Known Drug Allergies Allergy Verified 03/25/17 21:56
[2021-10-29] MEDS ORDERED: NITROSTAT SL PRN (17:46)
--- NOTE | 2021-10-29 17:55 | PCM.PROG ---
Progress Note - Subjective Subjective: Patient is a 61 year old white male who was admitted as per HPI. Patient has a history of CVA and multiple other medical conditions. Right wrist and hand continue to be weak. Attempting to obtained records from [facility], [place]. MRI negative for acute CVA. No other concerns at present. Attempting to obtain US carotid and echo results. - Past Medical Family Social History Past Med/Fam/Surg Hx: No changes since H&P Allergies: Allergies No Known Drug Allergies Allergy (Verified 03/25/17 21:56) - Review of Systems ROS: No change since H&P - Vital Signs and I&O's Vital Signs: Temperature 98.7 F Pulse Rate [Brachial] 70 Pulse Rate 72 Respiratory Rate 18 Blood Pressure [Right Arm] 132/69 Blood Pressure 144/62 O2 Sat by Pulse Oximetry 97 Intake and Output: Intake & Output 10/26/21 10/27/21 10/28/21 10/29/21 23:59 23:59 23:59 23:59 Intake Total 500 / 500 1889 / 1890 Balance 500 / 500 1889 / 1889 - Physical Exam Oriented: Normal Eyes: Normal Ear: Normal Nose: Normal Throat: Normal Respiratory: Normal Cardiovascular: Normal : Normal Auscultation: Bowel Sounds: Normal Palpation: Normal Tenderness: Normal Skin: Decreased Turgur Musculoskeletal: Right, Wrist, Hand (Right hand limp, unable to rotate wrist due to weakness) Psychiatric: Normal Mood Description: Calm Affect: Normal Speech Pattern: Clear, Appropriate - Laboratory and Diagnostics Result Diagrams: 10/29/21 04:40 10/29/21 04:40 Labs: Laboratory WBC 7.6 X10^3/uL (3.6-10.0) 10/29/21 04:40 RBC 2.92 X10^6/uL (4.7-6.0) L 10/29/21 04:40 Hgb 8.2 g/dL (13.5-18.0) L 10/29/21 04:40 Hct 24.3 % (42.0-54.0) L 10/29/21 04:40 MCV 83.1 fL (80.0-100.0) 10/29/21 04:40 MCH 28.0 pg (27.0-34.0) 10/29/21 04:40 MCHC 33.7 g/dL (33.0-35.0) 10/29/21 04:40 RDW 16.8 % (11.6-16.5) H 10/29/21 04:40 Plt Count 401 X10^3/uL (150.0-450.0) 10/29/21 04:40 MPV 6.9 fL (7.4-11.0) L 10/29/21 04:40 Neut % (Auto) 66.6 % (42.0-75.0) 10/29/21 04:40 Lymph % (Auto) 15.2 % (21.0-51.0) L 10/29/21 04:40 [place] % (Auto) 11.7 % (0.0-13.0) 10/29/21 04:40 Eos % (Auto) 6.1 % (0.9-2.9) H 10/29/21 04:40 Baso % (Auto) 0.4 % (0.2-1.0) 10/29/21 04:40 Neut # (Auto) 5.1 x10^3/uL (2.2-4.8) H 10/29/21 04:40 Lymph # (Auto) 1.2 X10^3/uL (1.3-2.9) L 10/29/21 04:40 Jack # (Auto) 0.9 x10^3/uL (0.3-0.8) H 10/29/21 04:40 Eos # (Auto) 0.5 x10^3/uL (0.0-0.2) H 10/29/21 04:40 Baso # (Auto) 0.0 X10^3/uL (0.0-0.1) 10/29/21 04:40 Absolute Nucleated RBC 0.0 /100WBC 10/29/21 04:40 PT 12.9 SECONDS (11.8-14.3) 10/28/21 16:37 INR Target Range - 10/28/21 16:37 INR 1.00 (0.8-1.3) 10/28/21 16:37 APTT 27.3 SECONDS (22.9-36.5) 10/28/21 16:37 PTT Comment - 10/28/21 16:37 Fibrinogen 401 mg/dL (239-489) 10/28/21 16:37 Sodium 140 mmol/L (136-145) 10/29/21 04:40 Corrected Sodium 145 mmol/L (136-145) 10/29/21 04:40 Potassium 4.7 mmol/L (3.5-5.1) 10/29/21 04:40 Chloride 107 mmol/L (98-107) 10/29/21 04:40 Carbon Dioxide 24.1 mmol/L (21-32) 10/29/21 04:40 BUN 42 mg/dL (7-18) H 10/29/21 04:40 Creatinine 1.79 mg/dL (0.70-1.30) H 10/29/21 04:40 Est GFR (MDRD) Af Amer 50 (>60) L 10/29/21 04:40 Est GFR (MDRD) Non-Af 41 (>60) L 10/29/21 04:40 Glucose 320 mg/dL (65-99) H 10/29/21 04:40 POC Glucose (mg/dL) 261 mg/dL (65-99) H 10/29/21 17:02 Calcium 8.1 mg/dL (8.5-10.1) L 10/29/21 04:40 Corrected Calcium 9.2 mg/dL (8.5-10.1) 10/29/21 04:40 Total Bilirubin 0.30 mg/dL (0.2-1.0) 10/29/21 04:40 AST 14 Units/L (15-37) L 10/29/21 04:40 ALT 21 Units/L (12-78) 10/29/21 04:40 Alkaline Phosphatase 96 Units/L (46-116) 10/29/21 04:40 Total Protein 5.7 g/dL (6.4-8.2) L 10/29/21 04:40 Albumin 2.6 g/dL (3.4-5.0) L 10/29/21 04:40 Globulin 3.1 g/dL (2.5-4.5) 10/29/21 04:40 Albumin/Globulin Ratio 0.8 Ratio (1.1-2.1) L 10/29/21 04:40 Triglycerides 113 mg/dL (0-150) 10/28/21 16:37 Cholesterol 127 mg/dL (0-200) 10/28/21 16:37 LDL Cholesterol, Calc 39 mg/dL (0-100) 10/28/21 16:37 HDL Cholesterol 65 mg/dL (40-60) H 10/28/21 16:37 Cholesterol/HDL Ratio 2.0 (0.0-5.0) 10/28/21 16:37 SARS-CoV-2 (PCR) Negative (NEGATIVE) 10/28/21 20:01 - Plan (1) Weakness of right hand Status: Acute Plan: Obtain US carotid and echo report from [place]. See EMR for further orders (2) Hypertension Status: Chronic (3) History of CVA (cerebrovascular accident) Status: Chronic
[2021-10-29] MEDS: NORCO 5/325 MG TAB PO PRN (20:41)
[2021-10-29] MEDS: SNACK - Diabetic Appropriate PO SCH (20:43)
[2021-10-29] MEDS: DESYREL PO SCH (21:30)
[2021-10-29] MEDS: LANTUS SC SCH (21:32)
[2021-10-30 05:41] LABS: BASOPHILS % (AUTO) 0.1 % (0.2-1.0); EOSINOPHILS # (AUTO) 0.1 x10^3/uL (0.0-0.2); EOSINOPHILS % (AUTO) 0.6 % (0.9-2.9); HEMATOCRIT 27.4 % (42.0-54.0); HEMOGLOBIN 9.2 g/dL (13.5-18.0); LYMPHOCYTES # (AUTO) 0.7 X10^3/uL (1.3-2.9); LYMPHOCYTES % (AUTO) 7.9 % (21.0-51.0); MEAN CORPUSCULAR HEMOGLOBIN 27.9 pg (27.0-34.0); MEAN CORPUSCULAR HGB CONC 33.4 g/dL (33.0-35.0); MEAN CORPUSCULAR VOLUME 83.4 fL (80.0-100.0); MEAN PLATELET VOLUME 6.9 fL (7.4-11.0); MONOCYTES # (AUTO) 1.1 x10^3/uL (0.3-0.8); MONOCYTES % (AUTO) 12.4 % (0.0-13.0); NEUTROPHILS # (AUTO) 6.9 x10^3/uL (2.2-4.8); RED BLOOD COUNT 3.28 X10^6/uL (4.7-6.0); RED CELL DISTRIBUTION WIDTH 16.9 % (11.6-16.5); WHITE BLOOD COUNT 8.8 X10^3/uL (3.6-10.0)
[2021-10-30 05:53] LABS: ALANINE AMINOTRANSFERASE 19 Units/L (12-78); ALBUMIN 2.7 g/dL (3.4-5.0); ALKALINE PHOSPHATASE 99 Units/L (46-116); ASPARTATE AMINO TRANSFERASE 15 Units/L (15-37); BLOOD UREA NITROGEN 42 mg/dL (7-18); CALCIUM 8.5 mg/dL (8.5-10.1); CARBON DIOXIDE 24.5 mmol/L (21-32); CHLORIDE 111 mmol/L (98-107); COR CA(FOR HYPOALB) 9.5 mg/dL (8.5-10.1); CREATININE 1.69 mg/dL (0.70-1.30); SODIUM 146 mmol/L (136-145); TOTAL PROTEIN 6.3 g/dL (6.4-8.2); eGFR NON BLACK RACES 44 (>60)
[2021-10-30] MEDS: LOPRESSOR TAB 25 MG PO SCH (10:10)
[2021-10-30] MEDS: ZESTRIL TAB 5 MG PO SCH (10:10)
[2021-10-30] MEDS: ASPIRIN 81 MG CHEWTAB PO SCH (10:11)
[2021-10-30] MEDS: PLAVIX PO SCH (10:11)
[2021-10-30] MEDS: NovoLIN R (or HumuLIN R) SUBCUT PRN (12:12)
[2021-10-30 15:41] VITALS: BP 175/77
--- NOTE | 2021-10-30 16:50 | VAS ---
Ultrasound carotid artery Doppler bilateralIndication: Weakness and right arm paralysisTECHNIQUEDynamic grayscale, color spectral Doppler imaging through the bilateral carotid systems and vertebral arteries.FINDINGSPeak systolic are velocities listed below in cm/secRight-side:CCA prox: 95.9CCA distal: 99.2Bulb: 97.0ICA prox: 50.8ICA prox end-diastolic: 24.3ICA distal: 106.9ECA: 243.8Vert: 113.9, anterogradeLeft side:CCA prox: 111.7CCA distal: 77.5Bulb: 91.1ICA prox: 170.9ICA prox end-diastolic: 29.6ICA distal: 150.4ECA: 170.9Vert: 72.6, anterogradeICA to CCA ratios are less than 2.Plaque is seen at both bulbs, more notably on the leftIMPRESSION1. 50-69 percent stenosis of the left ICA with marked plaque at the left carotid bulb, based on NASCET criteria.2. The right ECA shows increased velocity, possibly due to stenosis of the bulb is well.Electronically signed by: GIULIA UMANA (October 30, 2021 16:48:27)
--- NOTE | 2021-10-30 16:56 | MRI ---
MR cervical spine without contrastIndication: Right wrist painTECHNIQUEMultiplanar multisequence imaging through the cervical spine without contrastCOMPARISONNo recent similar prior cervical imagingFINDINGSCervical spinal cord signal is normal. Prevertebral soft tissues are normal. Limited images through the upper chest and soft tissues of the neck show no unexpected abnormality. Bone marrow signal is normal. Craniocervical junction and cervicothoracic junction are intact. Upper thoracic spine is intact with minimal marginal osteophytosis. No STIR signal abnormality seen.There is mild multilevel disc degenerative change and facet arthropathy.C2-C3: Disc osteophytes contribute to minimal spinal canal narrowingC3-C4: Uncovertebral joint osteophytes, asymmetric to the right cause minimal right neural foramina encroachment and mild spinal canal narrowingC4-C5: Uncovertebral joint osteophytes and facet osteophytes cause mild right and [id number] left neural foramina narrowing with mild to moderate spinal canal narrowingC5-C6: Uncovertebral joint osteophytes and facet arthropathy cause minimal left and [id number] right neural foramina narrowing. Moderate spinal canal narrowing notedC6-C7: Uncovertebral joint osteophytes do not cause neural foramina stenosis. There is minimal asymmetric to the right spinal canal narrowingC7-T1: No stenosisIMPRESSION1. Multilevel spine disc degenerative changes and uncovertebral joint osteophytes with facet arthropathy resulting in multilevel spinal canal narrowing, most notably present at C5-C6, with other levels as above.2. Areas of neural foramina encroachment as above without severe stenosis. This is probably worse on the right at C5-C6 and on the left at C4-Y4Ntzctumtrfoggw signed by: GIULIA UMANA (October 30, 2021 16:54:45)
--- NOTE | 2021-11-20 14:06 | PCM.DCPLAN ---
Discharge Plan - Discharge Plan Hospital Course: Admit date 10/28/21 Discharge date 10/30/21 DOS 10/30/21 Admit Diagnosis(1) Weakness of right hand (2) Hypertension (3) History of CVA (cerebrovascular accident) (4) DM Discharge Diagnosis SAME Hospital Course Patient is a 61 year old white male who is being admitted due to right hand weakness. Right hand is limp. Patient unable to close fingers or rotate wrist. Patient reports sudden onset. Patient denies lower ext weakness, CP, SOB, CORONEL or any other symptoms. It was recommended patient not receive TPA due to recent GI bleed and blood transfusion BY [facility]. PCP in [place]. Patient reports he was [facility]. Labs and imaging reviewed. MRI cervical spine revealed no acute abnormality only chronic changes, ultrasound carotids revealed carotid artery stenosis without severe/critical stenosis. Records requested from [place]. Patient does have history of CDM and CHF; not in acute exacerbation at present. CT brain revealed no acute findings. MRI brain negative for acute abnormality. Hand weakness is not related to neuro issues. Appears to be related to ortho issues. Patient encouraged to followup with ortho and pcp outpatient. Labs vitals and imaging were stable. Greater than 35 mins spent on discharge. Disposition: 01 HOME, SELF-CARE Condition: Stable Health Concerns: Post Hospitalization: new medications and changes needed to prevent readmission or further decline. Pt educated and given instructions on all concerns. Care Plan Goals: Problem: Pain/Alteration in Comfort Goal: Improve/ Resolve Pain; Achieve Pain Tolerance Instructions: Take pain medications as prescribed. Contact your primary care provider if your pain is unrelieved or worsens. Follow up with primary care provider as directed. Plan of Treatment: Continue with present treatment and follow up plan. Pt is to keep follow up appointment as instructed and take medications as ordered. Assessment: No acute distress noted at discharge. Prescriptions: Continued aspirin 81 MG tablet,chewable 81 mg PO DAILY clopidogrel [Plavix] 75 MG tablet 75 mg PO DAILY Lantus U-100 Insulin 100 UNITS/ML solution 10 units SC DAILY Lisinopril 5 MG Tab 5 mg PO DAILY metoprolol tartrate 25 MG tablet 25 mg PO BID nitroglycerin [Nitrostat] 0.4 MG tablet, sublingual 1 tab Sublingual PRN PRN (Reason: Chest Pain (Angina)) trazodone 150 mg Tablet 150 mg PO HS - Orders to Discharge Patient Discharge Orders: Discharge (Routine); Ordered 10/30/21 Ordered By: Donna Tovar - Follow ups/Referrals Follow ups/Referrals: NFD,None [Primary Care Provider] - 1 WEEK - Instructions Instructions: Knee Pain, Adult, Hypoglycemia, How to Take Your Blood Pressure, Preventing Hypertension, Preventing Hypoglycemia, How to Take Your Blood Pressure, Zqzz-[id number], Hypertension, Adult, [id number], Managing Your Hypertension, Blood Glucose Monitoring, Adult Forms: Excuse From Work or School, Precautions for COVID19, [facility], Patient Portal, Social Distancing Print Language: TAIWANESE
== END 2021-10-30 18:04 | disposition home or self-care (01) ==
LOC: ER 15:36 → MED/SURG 15:36
PROVIDERS: ADMIT Internal Medicine; ATTEND Internal Medicine
DX: F32.89 Other specified depressive episodes; M62.81 Muscle weakness (generalized); F41.8 Other specified anxiety disorders; Z86.73 Personal history of transient ischemic attack (TIA), and cerebral infarction without residual deficits; E11.65 Type 2 diabetes mellitus with hyperglycemia; I65.22 Occlusion and stenosis of left carotid artery; I10 Essential (primary) hypertension; J44.9 Chronic obstructive pulmonary disease, unspecified; R51.9 Headache, unspecified; R60.0 Localized edema; I25.10 Atherosclerotic heart disease of native coronary artery without angina pectoris; E78.2 Mixed hyperlipidemia; R94.31 Abnormal electrocardiogram [ECG] [EKG]